=== PATIENT | female | born 1955 | race Caucasian/White ===

== ENCOUNTER 2019-09-07 10:10 | Day surgery (SDC) | payer MEDICARE, OTHER ==
[~2019-09-07 10:10] MED LIST: BUPIVACAINE HCL 0.75% INJ/PF (7.5 MG/1 ML) 10 ML SDV OS PRN; KETOROLAC TROMETHAMINE 0.45% 4 DROP/0.4 ML DROPERETTE OS PRN; LIDOCAINE 4% INJ/PF (40 MG/ML) 5 ML AMPUL OS PRN
[2019-09-07] MEDS ORDERED: MIDAZOLAM 2 MG/2 ML INJ ONE (10:58)
[2019-09-07] MEDS: CYCLOPENTOLATE 0.2%/PHENYLEPHRINE 1% OPH SOLN 2 ML OS PRN ×3 (11:38→12:00)
[2019-09-07] MEDS: BESIFLOXACIN HCL 0.6% OPH SUSP 5 ML BOTTLE OS PRN ×4 (11:38→12:46)
[2019-09-07] MEDS: TROPICAMIDE 1% OPH SOLN 15 ML OS PRN ×3 (11:38→12:00)
[2019-09-07] MEDS: TETRACAINE HCL 0.5% OPH SOLN 4 ML OS PRN ×4 (11:38→12:13)
[2019-09-07] MEDS: EPINEPHRINE INJ/PF 1 MG/1 ML AMPULE ONE ×2 (12:32)
[2019-09-07] MEDS: LIDOCAINE 1% INJ-PF (10 MG/ML) 30 ML SDV ONE ×2 (12:32)
[2019-09-07] MEDS: CHONDR SU A NA/HYALUR INTRAOC KIT (SURGICARE) ONE ×2 (12:32)
[2019-09-07] MEDS: DORZOLAMIDE HCL 2%/TIMOLOL MALEAT 0.5% OPH SOLN 10 ML OS PRN ×2 (12:46)
--- NOTE | 2019-09-07 12:54 | Operative Report ---
Operative Report-[facility] Operative Report: DATE OF SURGERY: 09/07/2019 PREOPERATIVE DIAGNOSIS: CATARACT, LEFT EYE. POSTOPERATIVE DIAGNOSIS: CATARACT, LEFT EYE. PROCEDURE PERFORMED: PHACOEMULSIFICATION WITH POSTERIOR CHAMBER INTRAOCULAR LENS, LEFT EYE. Intraocular Lens Model : Toric MX60E T200 21.0 Total Phaco Time: 3.60 CDE SURGEON: JUNITO PINA MD ANESTHESIA: TOPICAL WITH MAC. INDICATIONS FOR SURGERY: Difficulty with night driving PROCEDURE: The patient was brought to the Operating Room and placed in a seated position. a lid speculum was placed in the eye. the 0.180, and 270 degree axis of the cornea was marked with a toric marker. the patien was place in a reclining position. Following tetracaine drops, topical anesthesia was administered. This consisted of instrument wipe pledgets soaked in a solution of 4% Xylocaine mixed with 0.75% Marcaine in a 1:2 ratio. A 2 x 1 cm pledget was placed in the superior fornix. A 1 x 1 cm pledget was placed in the inferior fornix. The eye was patched shut for 5 minutes. The patch was removed. The eye was sterilely prepped and draped in the usual manner. Lid speculum was placed in the eye. The pledgets were removed. 4-0 black silk sutures were placed around the superior and the inferior rectus muscles to be used as traction. A conjunctival peritomy was made at the 10 o'clock position. Hemostasis was obtained with bipolar cautery. A posterior limbal groove was created using a crescent knife and dissected anteriorly towards the cornea. A sharp point blade was used to create a parace ntesis site at the 2 o'clock position. 0.2 cc non preserved Lidocaine was injected into the anterior chamber. A 2.4 mm keratome was used to enter the anterior chamber through the groove. Viscoelastic was injected into the anteriorchamber. An anterior capsulotomy was performed using Utrata forceps in acapsulorrhexis fashion. Hydrodissection and hydrodelineation were performed. Phacoemulsification was performed in [id number] technique. Following this, the I/A unit was used to remove residual cortex. Viscoelastic was injected into the capsular bag. The Intraocular lens was placed in the c apsular bag. The 12 degree axis of the eye was marked using a toric marker and the previously marked sites as reference. The lens was centered at this axis. The I/A unit was used to remove residual viscoelastic. The wound was seen to be watertight under high and low pressure, and no sutures were placed. The intraocular lens was well centered. The pressure was adjusted in the eye to normal pressure. The 4-0 black silk sutures and lid speculum were removed. The eye was shielded after Besivance and Cosopt drops were placed. The patient tolerated the procedure well and was sent to the Recovery Room in good condition.
== END 2019-09-07 15:30 | disposition home or self-care (01) ==
LOC: SC 10:10
PROVIDERS: ATTEND Ophthalmology
DX: H25.813 Combined forms of age-related cataract, bilateral (principal); H04.123 Dry eye syndrome of bilateral lacrimal glands; I10 Essential (primary) hypertension; Z79.899 Other long term (current) drug therapy
CPT/HCPCS: 66984; J2250; J3490 ×5; J0171; V2787